=== PATIENT | female | born 1955 | race Caucasian/White ===

== ENCOUNTER 2018-05-29 23:11 | Emergency (ER) | payer MEDICAID ==
[2018-05-30 02:21] LABS: BASO % 0 % (0-3); EOS # 0.1 x10^3/uL (0.0-0.7); EOS % 1 % (0-3); HEMATOCRIT 31.4 % (36.0-47.0); HEMOGLOBIN 10.7 g/dL (12.0-15.5); LYMPH # 0.8 x10^3/uL (1.0-4.8); LYMPH % 8 % (24-48); MEAN CORPUSCULAR HEMOGLOBIN 30 pg (25-35); MEAN CORPUSCULAR HGB CONC 34 g/dL (31-37); MEAN CORPUSCULAR VOLUME 88 fL (79-100); MONO # 0.5 x10^3/uL (0.0-1.1); MONO % 4 % (0-9); NEUT # 9.1 x10^3uL (1.8-7.7); NEUT % 87 % (31-73); PLATELET COUNT 166 x10^3/uL (140-400); RED BLOOD COUNT 3.58 x10^6/uL (3.50-5.40); WHITE BLOOD COUNT 10.4 x10^3/uL (4.0-11.0)
[2018-05-30 02:43] LABS: ANION GAP 8 (6-14); BLOOD UREA NITROGEN 21 mg/dL (7-20); BUN/CREATININE RATIO 23 (6-20); CALCIUM 10.7 mg/dL (8.5-10.1); CARBON DIOXIDE 28 mmol/L (21-32); CHLORIDE 101 mmol/L (98-107); CREATININE 0.9 mg/dL (0.6-1.0); GFR 63.4; GLUCOSE 215 mg/dL (70-99); POTASSIUM 3.6 mmol/L (3.5-5.1); SODIUM 137 mmol/L (136-145)
[2018-05-30 02:45] LABS: ADD MAN DIFF? YES
[2018-05-30 02:49] LABS: ALBUMIN/GLOBULIN RATIO 0.6 (1.0-1.7); ALK PHOS 79 U/L (46-116); ALT (SGPT) 20 U/L (14-59); AST (SGOT) 14 U/L (15-37); TOTAL BILIRUBIN 0.3 mg/dL (0.2-1.0); TOTAL PROTEIN 8.2 g/dL (6.4-8.2)
[2018-05-30] MEDS: IV NORMAL SALINE 1000ML BAG 1,000 ML IV (03:15)
[2018-05-30] MEDS: oxyCODONE/APAP 5/325 1 TAB TABLET PO (03:16)
[2018-05-30] MEDS: oxyCODONE IR 5 MG TABLET PO (03:19)
[2018-05-30 05:36] LABS: % LYMPHS 9 % (24-48); % MONOS 5 % (0-10); % SEGS 86 % (35-66); PLT ESTIMATE ADEQUATE (ADEQUATE)
[2018-05-30 05:37] LABS: HYPERSEGS PRESENT
== END 2018-05-30 06:20 | disposition home or self-care (01) ==
LOC: ER 23:11
DX: L02.33 Carbuncle of buttock (principal); L02.239 Carbuncle of trunk, unspecified; L02.32 Furuncle of buttock; L02.229 Furuncle of trunk, unspecified
CPT/HCPCS: 36415; 80053; 85007; 85025; 99284; J7030